=== PATIENT | male | born 1970 | race Caucasian/White ===

== ENCOUNTER 2016-02-24 22:48 | Emergency (ER) | payer OTHER ==
[~2016-02-24] VITALS: Ht 182.9 cm; Wt 81.6 kg
--- NOTE | 2016-02-24 23:33 | RADIOLOGY REPORT ---
EXAMINATION: XR SHOULDER, LEFT CLINICAL INFORMATION: Pain. Question dislocation COMPARISON: 04/18/2014 TECHNIQUE: 2 views of the left shoulder FINDINGS: There is an anterior glenohumeral dislocation. No evidence of acute fracture. The acromial clavicular joint is intact with mild degenerative changes. The visualized lung is clear. IMPRESSION: Anterior glenohumeral dislocation.
--- NOTE | 2016-02-24 23:48 | ED GENERAL ADULT ---
History of Present Illness General Chief Complaint: Shoulder Injury Stated Complaint: LEFT SHOULDER DISLOCATION PLAYING BB Source: patient, family, old records Exam Limitations: no limitations Vital Signs & Intake/Output Vital Signs & Intake/Output Vital Signs Date Time Temp Pulse Resp B/P Pulse O2 O2 Flow FiO2 Ox Delivery Rate 02/23 2304 98.7 67 20 147/91 97 Room Air ED Intake and Output 02/24 0000 02/23 1200 Intake Total Output Total Balance Patient 180 lb Weight Allergies Coded Allergies: NO KNOWN ALLERGIES (04/18/14) Reconcile Medications Oxycodone HCl/Acetaminophen (Percocet 5-325 MG Tablet) 5 MG-325 MG TABLET 1-2 TAB PO Q6P PRN PAIN Triage Note: RECEIVED 46 YO MALE C/O " I DISLOCATED BY LEFT SHOULDER PLAYING BASKETBALL TONITE" Triage Nurses Notes Reviewed? yes HPI: Patient was playing basketball when he went up for rebound and dislocated his left shoulder. He is dislocated his left shoulder twice in the past. Patient is complaining of 10 out of 10 throbbing pain to his left shoulder that increases with any movement. There is no radiation of the pain. There is no tingling or numbness. The pain is constant. Patient denies any other injury. Past History Travel History Traveled to [place] past 21 day No Medical History Any Pertinent Medical History? see below for history Neurological: NONE EENT: NONE Cardiovascular: NONE Respiratory: NONE Gastrointestinal: NONE Hepatic: NONE Renal: NONE Musculoskeletal: L SHOULDER DISLOCATION Psychiatric: NONE Endocrine: NONE Blood Disorders: NONE Cancer(s): NONE DUMPER/Reproductive: NONE Surgical History Surgical History: non-contributory Psychosocial History What is your primary language Guinean Tobacco Use: Never used ETOH Use: occasional use Illicit Drug Use: denies illicit drug use Family History Hx Contributory? No Review of Systems Review of Systems Constitutional: Reports: no symptoms. EENTM: Reports: no symptoms. Respiratory: Reports: no symptoms. Cardiovascular: Reports: no symptoms. GI: Reports: no symptoms. Genitourinary: Reports: no symptoms. Musculoskeletal: Reports: see HPI, joint pain. Skin: Reports: no symptoms. Neurological/Psychological: Reports: no symptoms. Hematologic/Endocrine: Reports: no symptoms. Immunologic/Allergic: Reports: no symptoms. All Other Systems: Reviewed and Negative Physical Exam Physical Exam General Appearance: well developed/nourished, alert, awake, moderate distress Head: atraumatic, normal appearance Eyes: Bilateral: PERRL, EOMI. Ears, Nose, Throat: normal pharynx, normal ENT inspection, hearing grossly normal Neck: normal inspection, supple, no midline tenderness Respiratory: normal breath sounds, chest non-tender, no respiratory distress, lungs clear Cardiovascular: regular rate/rhythm, normal peripheral pulses Peripheral Pulses: 3+ radial (R), 3+ radial (L) Gastrointestinal: normal bowel sounds, soft, non-tender Back: normal inspection, normal range of motion Extremities: STEP OFF TO THE LEFT SHOULDER Neurologic/Psych: no motor/sensory deficits, awake, alert, oriented x 3, normal gait, normal mood/affect Skin: intact, normal color, warm/dry Core Measures ACS in differential dx? No CVA/TIA Diagnosis: No Severe Sepsis Present: No Septic Shock Present: No Progress Differential Diagnoses I considered the following diagnoses in my evaluation of the patient: [Left shoulder dislocation] Plan of Care: Orders Procedure Date/time Status XRY-SHOULDER COMPLETE-LEFT 02/24 22 Active Diagnostic Imaging: Viewed by Me: Radiology Read. Discussed w/RAD: Radiology Read. Radiology Impression: PATIENT: TARAN GARCIA PRESENT AGE: 46 PATIENT ACCOUNT NO: [id number] : 71 LOCATION: [facility] ORDERING PHYSICIAN: MORGAN PARKER MD SERVICE DATE: 02/24/16 EXAM TYPE: RAD - XRY-SHOULDER COMPLETE-LEFT EXAMINATION: XR SHOULDER, LEFT CLINICAL INFORMATION : Pain. Question dislocation COMPARISON: 04/18/2014 TECHNIQUE: 2 views of the left shoulder FINDINGS: There is an anterior glenohumeral dislocation. No evidence of acute fracture. The acromial clavicular joint is intact with mild degenerative changes. The visualized lung is clear. IMPRESSION: Anterior glenohumeral dislocation. DICTATED BY: FENG RANGEL MD DATE/TIME DICTATED: 02/24/162327 DIRECTOR OF MARKETING OPERATIONS:LIU DATE/TIME TRANSCRIBED:02/24/162327 CONFIDENTIAL, DO NOT COPY WITHOUT APPROPRIATE AUTHORIZATION. <Electronically signed in Other Vendor System> SIGNED BY: FENG RANGEL MD 02/24/16 2333, PATIENT: TARAN GARCIA PRESENT AGE: 46 PATIENT ACCOUNT NO: [id number] : 71 LOCATION: [facility] ORDERING PHYSICIAN: MORGAN PARKER MD SERVICE DATE: 02/25/16 EXAM TYPE: RAD - XRY-SHOULDER COMPLETE-LEFT EXAMINATION: XR SHOULDER, LEFT CLINICAL INFORMATION: Post reduction COMPARISON: 02/24/2016 TECHNIQUE: Single view of the left shoulder FINDINGS: The left glenohumeral dislocation has been reduced. The humeral head grossly articulates appropriately with the glenoid on this single view. No evidence of acute fracture. IMPRESSION: Reduction of the previous left glenohumeral dislocation with appropriate alignment of the shoulder. DICTATED BY : FENG RANGLE MD DATE/TIME DICTATED:02/25/1656 DIRECTOR OF MARKETING OPERATIONS: LIU DATE/TIME TRANSCRIBED:02/25/1656 CONFIDENTIAL, DO NOT COPY WITHOUT APPROPRIATE AUTHORIZATION. <Electronically signed in Other Vendor System> SIGNED BY: FENG RANGEL MD 02/25/16 010 Initial ED EKG: none Rhythm Strip: normal sinus rhythm Departure Departure Disposition: HOME OR SELF CARE Condition: Stable Clinical Impression Primary Impression: Recurrent dislocation, left shoulder Referrals: PATIENT HAS NO PRIMARY CARE DR (PCP/Family) BAN EARL,KRISTOPHER Tri[place] Additional Instructions: wear shoulder immobilizer return as needed Departure Forms: Customer Survey General Discharge Information Prescriptions: Current Visit Scripts Oxycodone HCl/Acetaminophen (Percocet 5-325 MG Tablet) 1-2 TAB PO Q6P PRN PAIN #20 TAB Procedures Joint Reduction Joint Reduction Site: shoulder (L) Conscious Sedation: conscious sedation, performed by me Reduction Attempts: 1 Pre-Procedure NV Exam: No Post-Procedure NV Exam: No Post Joint Reduction Film: joint reduced Critical Care Note Critical Care Note Critical Care Time: non-applicable
[2016-02-25] MEDS ORDERED: PERCOCET 5-3251 EACH PO (00:32)
--- NOTE | 2016-02-25 01:01 | RADIOLOGY REPORT ---
EXAMINATION: XR SHOULDER, LEFT CLINICAL INFORMATION: Post reduction COMPARISON: 02/24/2016 TECHNIQUE: Single view of the left shoulder FINDINGS: The left glenohumeral dislocation has been reduced. The humeral head grossly articulates appropriately with the glenoid on this single view. No evidence of acute fracture. IMPRESSION: Reduction of the previous left glenohumeral dislocation with appropriate alignment of the shoulder.
[2016-02-25 01:12] VITALS: BP 126/88
== END 2016-02-25 01:26 ==
LOC: ERH 22:48
DX: S43.006A Unspecified dislocation of unspecified shoulder joint, initial encounter (principal); X58.XXXA Exposure to other specified factors, initial encounter; Y93.67 Activity, basketball
CPT/HCPCS: 73030-LT; 96361; 96374; 96375